=== PATIENT | male | born 1995 | race Two or more races ===

== ENCOUNTER 2017-07-27 12:48 | Emergency (ER) | payer OTHER ==
[~2017-07-27] VITALS: Ht 172.7 cm; Wt 58.0 kg
[2017-07-27 12:51] VITALS: Ht 172.7 cm; Wt 58.0 kg
[2017-07-27] MEDS ORDERED: KETOROLAC 30 MG INJ IM STA (15:06)
--- NOTE | 2017-07-27 15:16 | ERD ---
ER Documentation Chief Complaint Chief Complaint pt bib family with c/o left shoulder pain after lifting something heavy HPI 22-year-old male with a history of chronic left shoulder pain presents the emergency department for acute on chronic left shoulder pain which began yesterday after lifting a heavy object at home. Patient states that 6 years ago he sustained a fall which caused left shoulder injury. He was recommended to wear a sling which has since been his treatment of choice with pain flareups. Patient states he has not attempted to treat his symptoms with pain medication at home. He currently describes a sharp localized 10 out of 10 left shoulder pain which is worse with movement. He states the pain radiates to his neck. He denies any numbness or tingling. He denies any chest pain or shortness of breath. ROS All systems reviewed and are negative except as per history of present illness. Medications Home Meds Active Scripts Prednisone (Prednisone) 20 Mg Tab, 40 MG PO DAILY for 4 Days, TAB Prov:HECTOR GAYTAN PA-C 07/27/17 Naproxen* (Naprosyn*) 500 Mg Tablet, 500 MG PO BID for 7 Days, TAB Prov:HECTOR GAYTAN PA-C 07/27/17 Hydrocodone/Acetaminophen ([place] 5-325 Tablet) 1 Each Tablet, 1 EACH PO Q6, #7 TAB Prov:HECTOR GAYTAN PA-C 07/27/17 Allergies Allergies: Coded Allergies: No Known Allergy (Unverified , 07/27/17) PMhx/Soc Hx Alcohol Use: No Hx Substance Use: No Hx Tobacco Use: No Physical Exam Vitals Vital Signs Date Time Temp Pulse Resp B/P Pulse Ox O2 Delivery O2 Flow Rate FiO2 07/27/17 12:51 98.3 84 16 139/94 100 Physical Exam Const: Well-developed, well-nourished, no acute distress Head: Atraumatic Eyes: Normal Conjunctiva ENT: Normal External Ears, Nose and Mouth. Neck: Full range of motion..~ No meningismus. Resp: Clear to auscultation bilaterally Cardio: Regular rate and rhythm, no murmurs Skin: No petechiae or rashes Back: No midline Cervical spine tenderness. Full range of motion at the C- spine. Ext: Left shoulder: No major swelling or erythema. No ecchymosis. No surface trauma. No bony deformity or step-off. Patient tender along the superior region of the left shoulder. Patient unable to perform range of motion due to pain. Passive ROM in tact but slightly limited d/t pain. Patient is nontender at the elbow or wrist. Radial median ulnar motor function intact distally. Sensation intact to light touch distally. Brisk capillary refill. Radial pulse 2+. Neur: Awake and alert Psych: Normal Mood and Affect Results 24 hrs Current Medications Medications (Trade) Dose Ordered Sig/Polina Route PRN Reason Start Time Stop Time Status Last Admin Dose Admin Ketorolac Tromethamine (Toradol) 30 mg ONCE STAT IM 07/27/17 15:06 07/27/17 15:09 DC 07/27/17 15:18 Procedures/MDM PROCEDURE: XR Left Shoulder. CLINICAL INDICATION: Left shoulder pain. TECHNIQUE: Two views. Frontal and scapular Y-view. COMPARISON: No prior study is available for comparison. FINDINGS: There is no fracture or dislocation. The soft tissues are normal. Articular surfaces are intact. There is no lytic or blastic lesion. There is no radiopaque foreign body. IMPRESSION: 1. Normal images of the left shoulder. RPTAT: QQ .Chris Haley MD, MD Date Time Electronically viewed and signed by .Chris Haley MD, MD on 07/27/2017 15:45 .R/ CC: HECTOR GAYTAN PA-C This is a 22-year-old male with a history of chronic right shoulder pain presents emergency department for acute on chronic right shoulder pain after lifting a heavy object at home yesterday. Patient denies numbness or tingling but reports severe right shoulder pain and Limited range of motion at the shoulder joint. Patient well-appearing, nontoxic, and in mild distress. Exam of the shoulder without evidence of swelling, erythema, ecchymosis, or deformity. Patient was neurovascularly intact distally. Differential diagnosis includes but not limited to acute shoulder strain, rotator cuff tear, shoulder dislocation, fracture, septic joint, acute coronary syndrome. X-rays were performed and there is a injury pain yesterday. No evidence of acute fracture, dislocation or other abnormality Patient received pain medication and was placed in a sling prior to discharge. I recommended for him to follow-up with an document design specialist for further MRI imaging and proper management. Resources were provided. Based on patient's history of present illness and physical examination the decision was made to discharge. The patient was re-evaluated after ED treatment and stabilizing measures, and symptoms have improved. There is no evidence of life threatening injuries or illnesses at this time. On re-examination, patient resting in no distress, stable vital signs, reports feeling better and safe for discharge with outpatient follow up with PMD in 1-2 days. Patient given return precautions. Departure Diagnosis: Primary Impression: Shoulder pain Chronicity: chronic Laterality: right Qualified Code: M25.511 - Chronic right shoulder pain Additional Impression: Shoulder injury Encounter type: initial encounter Laterality: right Qualified Code: S49.91XA - Injury of right shoulder, initial encounter HECTOR GAYTAN PA-C Jul 27, 2017 15:16
--- NOTE | 2017-07-27 15:51 | RADRPT ---
PROCEDURE: XR Left Shoulder. CLINICAL INDICATION: Left shoulder pain. TECHNIQUE: Two views. Frontal and scapular Y-view. COMPARISON: No prior study is available for comparison. FINDINGS: There is no fracture or dislocation. The soft tissues are normal. Articular surfaces are intact. There is no lytic or blastic lesion. There is no radiopaque foreign body. IMPRESSION: 1. Normal images of the left shoulder. RPTAT: QQ .Chris Haley MD, MD Date Time Electronically viewed and signed by .Chris Haley MD, on 07/27/2017 15:45 .R/
[2017-07-27] MEDS ORDERED: NAPR-260 PO (16:14)
[2017-07-27] MEDS ORDERED: PRED20TA PO (16:14)
[2017-07-27] MEDS ORDERED: HYDR-906 PO (16:14)
== END 2017-07-27 16:45 | disposition home or self-care (01) ==
LOC: FTE 12:48
DX: S49.92XA Unspecified injury of left shoulder and upper arm, initial encounter (principal); X50.0XXA Overexertion from strenuous movement or load, initial encounter; Y92.9 Unspecified place or not applicable
CPT/HCPCS: 73030; 96372; J1885; Z7502

== ENCOUNTER 2018-11-29 09:32 | Emergency (ER) | payer OTHER ==
[~2018-11-29] VITALS: Wt 81.0 kg
[~2018-11-29 09:32] MED LIST: HYDR-4011 PO; NAPR-985 PO; PRED20TA PO
[2018-11-29 09:34] VITALS: BP 129/71; PULSE 78; RESP 18
[2018-11-29] MEDS ORDERED: CYCL10TA7 PO (09:53)
[2018-11-29] MEDS ORDERED: IBUP-1542 PO (09:53)
--- NOTE | 2018-11-29 09:56 | ERD ---
ER Documentation Chief Complaint Chief Complaint NECK AND BACK PAIN SINCE YESTERDAY HPI 23-year-old male presents the emergency department complaining of neck stiffness. Patient states that he awoke this morning with a neck stiffness with his head turned to the right side. Patient reports no numbness, tingling, loss of function. He reports no fevers, chills, sore throat. He reports no trauma. He reports pain localized to the lateral part of his neck. Patient also states that he had a chronic back pain with no numbness, tingling, bowel or bladder incontinence, fevers or chills. ROS All systems reviewed and are negative except as per history of present illness. Medications Home Meds Active Scripts Cyclobenzaprine Hcl* (Cyclobenzaprine Hcl*) 10 Mg Tablet, 10 MG PO TID, #15 TAB Prov:ROXANNE ESCOBEDO 11/29/18 Ibuprofen* (Motrin*) 600 Mg Tab, 600 MG PO Q8 PRN for PAIN, #30 TAB Prov:ROXANNE ESCOBEDO 11/29/18 Prednisone (Prednisone) 20 Mg Tab, 40 MG PO DAILY for 4 Days, TAB Prov:HECTOR GAYTAN PA-C 07/27/17 Naproxen* (Naprosyn*) 500 Mg Tablet, 500 MG PO BID for 7 Days, TAB Prov:HECTOR GAYTAN PA-C 07/27/17 Hydrocodone/Acetaminophen ([place] 5-325 Tablet) 1 Each Tablet, 1 EACH PO Q6, #7 TAB Prov:HECTOR GAYTAN PA-C 07/27/17 Allergies Allergies: Coded Allergies: No Known Allergy (Unverified , 07/27/17) PMhx/Soc History of Surgery: No Anesthesia Reaction: No Hx Neurological Disorder: No Hx Respiratory Disorders: No Hx Cardiac Disorders: No Hx Psychiatric Problems: No Hx Miscellaneous Medical Probl: Yes (left shoulder pain with injury) Hx Alcohol Use: No Hx Substance Use: No Hx Tobacco Use: No Physical Exam Vitals Vital Signs Date Temp Pulse Resp B/P (MAP) Pulse Ox O2 O2 Flow FiO2 Time Delivery Rate 11/29/18 97.2 78 18 129/71 99 09:34 (90) Physical Exam General: Well developed, well nourished in no acute distress HEENT: Scalp atraumatic with no laceration or evidence of skull fracture; no signs of basilar skull fracture. Face symmetric, stable and atraumatic Neck: Full range of motion without discomfort or neurologic symptoms, no midline cervical spine tenderness, step-off, or evidence of significant trauma. Patient has spasm and torticollis noted. CV: Regular rate, rhythm, no murmurs appreciated Lungs: Clear to auscultation bilaterally with no chest wall trauma appreciated, chest wall stable with no crepitus Abdomen: Soft, atraumatic and non-tender in all 4 quadrants Extremities: Atraumatic with no bony tenderness or deformity in all 4 extremities, full range of motion throughout all joints; pelvis stable to both AP and lateral compression Back: No thoracic or lumbar midline tenderness, no step-off or evidence of significant trauma Neurologic: Awake, alert and oriented, pupils equal, round and reactive to lig ht, face symmetric, tongue midline, moving all extremities with equal and normal strength, sensory exam grossly non-focal Procedures/MDM Patient was taken to a room, seen and examined Medical decision making: Otherwise healthy 23-year-old male presents with what appears to be a musculoskeletal spasm resulting in a torticollis. Patient has no evidence of trauma, infection or neurologic compromise and seems appropriate for outpatient supportive management. Departure Diagnosis: Primary Impression: Torticollis, acute Condition: Stable Patient Instructions: Torticollis ([place]ry Neck), Back And Neck Pain, General Additional Instructions: Please see your doctor if not improved in the next 3-5 days. ROXANNE ESCOBEDO Nov 29, 2018 09:56
== END 2018-11-29 10:26 | disposition home or self-care (01) ==
LOC: FTE 09:32
DX: M43.6 Torticollis (principal)
CPT/HCPCS: 99283